=== PATIENT | male | born 1965 | race African-American/Black ===

== ENCOUNTER 2016-10-08 10:19 | Emergency (ER) | payer SELFPAY ==
[~2016-10-08] VITALS: Ht 182.9 cm; Wt 81.8 kg
[2016-10-08] MEDS ORDERED: CYCLOBENZAPRINE 10MG TABLET PO ONE (13:00)
[2016-10-08] MEDS ORDERED: KETOROLAC 60MG/2ML VIAL IM ONE (13:00)
[2016-10-08 13:58] VITALS: BP 112/58
== END 2016-10-08 14:00 | disposition home or self-care (01) ==
LOC: ER 12:45
DX: M54.5 Low back pain (principal); Z87.891 Personal history of nicotine dependence; Z98.890 Other specified postprocedural states
CPT/HCPCS: 96372; 99283; J1885